=== PATIENT | male | born 1980 | race African-American/Black ===

== ENCOUNTER 2021-01-14 18:46 | Emergency (ER) | payer OTHER ==
[2021-01-14 19:01] VITALS: TEMP 99.2; BMI 39.9
[2021-01-14] MEDS ORDERED: KETOROLAC TROMETHAMINE 30 MG/1 ML VIAL IM ONE (20:05)
[2021-01-14] MEDS ORDERED: KETOROLAC TROMETHAMINE 30 MG/1 ML VIAL ONE (20:12)
[2021-01-14 21:02] VITALS: BP 140/92; PULSE 95
== END 2021-01-14 21:02 | disposition home or self-care (01) ==
LOC: JER 18:46
PROC: 3E0233Z Introduction of Anti-inflammatory into Muscle, Percutaneous Approach (ICD-10-PCS; principal; 2021-01-14)
DX: R07.89 Other chest pain (principal)
CPT/HCPCS: 71046-TC-FY; 99284-25; C9803; U0003; U0005

== ENCOUNTER 2024-07-28 10:36 | Emergency (ER) | payer OTHER ==
[2024-07-28 10:44] VITALS: BP 141/92; PULSE 90; RESP 20; TEMP 98.4; BMI 46.2
[2024-07-28] MEDS ORDERED: ACETAMINOPHEN 1000 MG/100 ML BAG IVPB ONE (11:48)
== END 2024-07-28 11:55 | disposition home or self-care (01) ==
LOC: JERFT 10:36
DX: I10 Essential (primary) hypertension (principal)
CPT/HCPCS: 99282-25